=== PATIENT | male | born 1975 | race Caucasian/White ===

== ENCOUNTER 2020-07-13 19:30 | Emergency (ER) | payer SELFPAY ==
[2020-07-13 19:34] VITALS: BP 151/110; PULSE 88; RESP 18; TEMP 36.1; O2SAT 99
--- NOTE | 2020-07-13 21:32 | ED.GENADULT ---
HPI - General Adult General Chief complaint: Recheck/Abnormal Lab/Rx Stated complaint: High BP, Covid + 07/02/2020 Time Seen by Provider: 07/13/20 21:03 History of Present Illness HPI narrative: Patient is a 45-year-old gentleman who presents [facility] department with chief complaint of elevated blood pressure. Patient reports that he had a prior history of hypertension and was taking lisinopril in the past the patient states that he was able to wean himself off of the lisinopril and has been controlling things with diet and exercise the patient reports he has not checked his blood pressure in a while reports that he has just finished his quarantine after being diagnosed with COVID-19 and states that he had a little bit of a runny nose so decided to take a dose of Sudafed after that he felt kind of a tingly feeling in his hands and decided to check his blood pressure and noticed that his blood pressure was significantly elevated. The patient denies chest pain denies shortness of breath denies focal neurological deficit denies confusion. Related Data Allergies Allergy/AdvReac Type Severity Reaction Status Date / Time No Known Allergies Allergy Verified 07/13/20 19:38 Review of Systems Review of Systems: Narrative: A 10 system review of systems was completed on the patient and is negative except for what is stated in the HPI. Nursing and ancillary documentation was reviewed. FOR[facility]LY [facility] Social History Social History Gender identity (if verbalized by the patient): Male Sexual Orientation (if Verbalized by the Patient): Straight or Heterosexual Comments History of COVID-19 prior history of hypertension Exam Narrative: Exam Narrative: GENERAL: Well-appearing, well-nourished, and in no acute distress. HEAD: Normocephalic, atraumatic. EYES: PERRLA and EOMI. ENT: Nares clear, no rhinorrhea or epistaxis. Mucous membranes moist. NECK: Supple. CHEST: Clear to auscultation. No respiratory distress. HEART: Regular rate and rhythm. No murmur heard. Normal peripheral pulses. ABDOMEN: Soft, nontender, nondistended, normal active bowel sounds. EXTREMITIES: Normal range of motion. No edema. SKIN: Warm, dry, no rash. NEURO: No focal deficits. Alert and oriented x3. PSYCH: Normal mood and affect. Course Course Emergency Course: Currently the patient is asymptomatic in discussion with the patient it was discussed whether testing needed to be performed currently with him being asymptomatic the patient does not require invasive testing at this point. It was discussed with the patient that we can restart his lisinopril that he was taking previously and have him short-term follow-up with a primary care physician. Vital Signs Vital signs: Vital Signs Temperature 36.1 C L 07/13/20 19:34 Pulse Rate 88 07/13/20 19:34 Respiratory Rate 18 07/13/20 19:34 Blood Pressure 151/110 H 07/13/20 19:34 Pulse Oximetry 99 07/13/20 19:34 Temperature 36.1 C L 07/13/20 19:34 Pulse Rate 88 07/13/20 19:34 Respiratory Rate 18 07/13/20 19:34 Blood Pressure 151/110 H 07/13/20 19:34 Pulse Oximetry 99 07/13/20 19:34 Medical Decision Making Vital Signs Vital Signs: Vital Signs Temperature 36.1 C L 07/13/20 19:34 Pulse Rate 88 07/13/20 19:34 Respiratory Rate 18 07/13/20 19:34 Blood Pressure 151/110 H 07/13/20 19:34 Pulse Oximetry 99 07/13/20 19:34 Temperature 36.1 C L 07/13/20 19:34 Pulse Rate 88 07/13/20 19:34 Respiratory Rate 18 07/13/20 19:34 Blood Pressure 151/110 H 07/13/20 19:34 Pulse Oximetry 99 07/13/20 19:34 Discharge Plan Discharge Clinical Impression: Hypertension Qualifiers: Hypertension type: unspecified Qualified Code(s): I10 - Essential (primary) hypertension Patient Disposition: Home, Self-Care Condition: Stable Instructions: Antibiotic Form, Hypertension (ED) Prescriptions: New lisinopril 10 mg t
[2020-07-13 21:45] VITALS: BP 156/105; PULSE 86; RESP 21; O2SAT 97
== END 2020-07-13 21:46 | disposition home or self-care (01) ==
PROVIDERS: Emergency Provider Emergency Medicine
DX: I10 Essential (primary) hypertension (principal); Z86.19 Personal history of other infectious and parasitic diseases
CPT/HCPCS: 99283

== ENCOUNTER 2024-01-22 23:47 | Emergency (ER) | payer BC, SELFPAY ==
[2024-01-22 23:52] VITALS: BP 161/100; PULSE 92; RESP 20; TEMP 36.9; O2SAT 99
[2024-01-23 00:07] VITALS: BP 161/100; PULSE 92; RESP 20; TEMP 36.9; O2SAT 99
--- NOTE | 2024-01-23 00:43 | ED.EAR ---
HPI - Ear Problem General Chief complaint: Ear Stated complaint: moth in ear Time Seen by Provider: 01/22/24 23:52 Source: patient Mode of arrival: ambulatory Limitations: no limitations History of Present Illness HPI Narrative: This is a 48 year old male that presents to the ER for foreign body in the left ear. Reports a bug flew into his ear. He can hear it moving. He tried to remove it without success. Related Data Allergies Allergy/AdvReac Type Severity Reaction Status Date / Time No Known Allergies Allergy Verified 01/22/24 23:48 Review of Systems Review of Systems: CONSTITUTIONAL: Denies fever ENT: Reports foreign body All systems reviewed & are unremarkable except as noted in HPI and below PMFSH Past Medical History Medical History (Updated 01/23/24 @ 00:55 by Nisreen Bhagat PA-C) History of hypertension Social History Social History (Updated 01/23/24 @ 00:55 by Nisreen Bhagat PA-C) Substance use: never Gender identity (if verbalized by the patient): Male Sexual Orientation (if Verbalized by the Patient): Straight or Heterosexual Exam Narrative: GENERAL: Well-appearing, well-nourished, and in no acute distress. HEAD: Normocephalic, atraumatic. EYES: EOMI. ENT: Insect in the left external auditory canal EXTREMITIES: Normal range of motion. No edema. SKIN: Warm, dry, no rash. NEURO: No focal deficits. Alert and oriented x3. PSYCH: Normal mood and affect Course Vital Signs Vital signs: Vital Signs Temperature 98.5 F 01/22/24 23:52 Pulse Rate 92 01/22/24 23:52 Respiratory Rate 20 01/22/24 23:52 Blood Pressure 161/100 H 01/22/24 23:52 Pulse Oximetry 99 01/22/24 23:52 Temperature 98.5 F 01/23/24 00:07 Pulse Rate 92 01/23/24 00:07 Respiratory Rate 20 01/23/24 00:07 Blood Pressure 161/100 H 01/23/24 00:07 Pulse Oximetry 99 01/23/24 00:07 Oxygen Delivery Room Air 01/23/24 00:07 Procedures FB Removal Ear Foreign Body #1: Foreign Body Removal Date: 01/23/24 Foreign Body Removal Time: 00:30 Location: ear canal (L) Foreign Body Suspected: insect TM intact pre-procedure: yes If Insect Suspected: ear canal instilled with Lidocaine Foreign Body Removed: yes Foreign Body Removal Technique: instrumentation Tympanic Membrane Intact Post Procedure: Yes Patient Tolerated Procedure: well and no complications Medical Decision Making MDM Narrative Medical decision making narrative: Patient presents to the ER for bug in the left ear. This was successfully removed. He had an area of bleeding to the EAC which was present on arrival. He reports he tried to remove the bug himself. Otherwise no post-traumatic findings. TM is intact. Will be started on prophylactic antibiotics. He was given warnings to return to the ER Vital Signs Vital Signs: Vital Signs Temperature 98.5 F 01/22/24 23:52 Pulse Rate 92 01/22/24 23:52 Respiratory Rate 20 01/22/24 23:52 Blood Pressure 161/100 H 01/22/24 23:52 Pulse Oximetry 99 01/22/24 23:52 Temperature 98.5 F 01/23/24 00:07 Pulse Rate 92 01/23/24 00:07 Respiratory Rate 20 01/23/24 00:07 Blood Pressure 161/100 H 01/23/24 00:07 Pulse Oximetry 99 01/23/24 00:07 Oxygen Delivery Room Air 01/23/24 00:07 Critical Care Time Critical Care Time Critical Care Time: No Discharge Plan Discharge Clinical Impression: Acute foreign body of left ear Qualifiers: Encounter type: initial encounter Qualified Code(s): T16.2XXA - Foreign body in left ear, initial encounter Patient Disposition: Home, Self-Care Condition: Improved Instructions: Ear Foreign Body (ED) Additional Instructions: Return to the emergency department if you experience fever, ear pain, drainage from your ear, or any other symptoms that are concerning to you. Instill antibiotic ear drops to prevent infection Follow up with your PCP
== END 2024-01-23 01:00 | disposition home or self-care (01) ==
PROVIDERS: Emergency Provider Physician Assistant
DX: T16.2XXA Foreign body in left ear, initial encounter (principal); I10 Essential (primary) hypertension
CPT/HCPCS: 69200; 99283